=== PATIENT | male | born 1980 | race Caucasian/White ===

== ENCOUNTER 2019-01-03 15:46 | Emergency (ER) | payer OTHER ==
[2019-01-03 16:05] VITALS: BP 132/80; PULSE 83; RESP 16; TEMP 99
[2019-01-03] MEDS ORDERED: DEXAMETHASONE SOD PHOSPHATE 10 MG/ML 1 ML VIAL IM STA (16:46)
[2019-01-03] MEDS ORDERED: AMOXIC-POT CLAV 875MG STARTER 2 EACH TABLET PO STA (16:46)
--- NOTE | 2019-01-03 16:48 | ED ---
ENT HPI - General Chief complaint: ENT Stated complaint: [facility]cess ent by [facility] Time Seen by Provider: 01/03/19 16:20 Source: patient Mode of arrival: ambulatory Limitations: no limitations - History of Present Illness Initial comments: 38-year-old male patient presents to the emergency department today for evaluation of sore throat. Patient was seen and evaluated at urgent care and sent in for possible peritonsillar abscess. Patient states he has had a sore throat for the last week. States that he did complete a prescription for a azithromycin and symptoms have persisted. States it hurts more on the right side. He does report increased pain with swallowing. Denies any difficulty swallowing or breathing. Denies fever or chills. Patient states Tylenol Motrin does improve his symptoms. Denies any ear pain. Patient denies any recent rash, chest pain, abdominal pain, nausea, vomiting, diarrhea, constipation, back pain, numbness, tingling, dizziness, weakness, hematuria, dysuria, urinary urgency, urinary frequency, headache, visual changes, or any other complaints. - Related Data Previous Rx's Medication Instructions Recorded Amoxic-Pot Clav 875-125Mg 1 tab PO Q12HR #20 tablet 01/03/19 [Augmentin 875-125] Allergies Allergy/AdvReac Type Severity Reaction Status Date / Time No Known Allergies Allergy Verified 01/03/19 16:06 Review of Systems ROS Statement: Those systems with pertinent positive or pertinent negative responses have been documented in the HPI. ROS Other: All systems not noted in ROS Statement are negative. Past Medical History Past Medical History: No Reported History History of Any Multi-Drug Resistant Organisms: None Reported Past Surgical History: No Surgical Hx Reported Past Psychological History: No Psychological Hx Reported Smoking Status: Never smoker Past Alcohol Use History: None Reported, Occasional Past Drug Use History: Marijuana General Exam Limitations: no limitations General appearance: alert, in no apparent distress, other (Physical well- developed, well-nourished adult male patient in no acute distress. Vital signs upon presentation are temperature 99.0F, pulse 83, respirations 16, blood pressure 132/80, pulse ox 97% on room air.) ENT exam: Present: mucous membranes moist, TM's normal bilaterally. Absent: normal oropharynx (Pharyngeal erythema. No tonsillar hypertrophy. No evidence for peritonsillar abscess. There does appear to be a right tonsillar stone.) Neck exam: Present: normal inspection. Absent: tenderness, meningismus, lymphadenopathy Respiratory exam: Present: normal lung sounds bilaterally. Absent: respiratory distress, wheezes, rales, rhonchi, stridor Cardiovascular Exam: Present: regular rate, normal rhythm, normal heart sounds. Absent: systolic murmur, diastolic murmur, rubs, gallop, clicks Neurological exam: Present: alert, oriented X3, CN II-XII intact Psychiatric exam: Present: normal affect, normal mood Skin exam: Present: warm, dry, intact, normal color. Absent: rash Course Vital Signs 01/03/19 16:03 Temperature 99.0 F Pulse Rate 83 Respiratory 16 Rate Blood Pressure 132/80 O2 Sat by Pulse 97 Oximetry Medical Decision Making - Medical Decision Making 38-year-old male patient presents to the emergency department today for evaluation of sore throat worse on the right side. Physical examination did reveal pharyngeal erythema and a right tonsillar stone. No evidence for peritonsillar abscess. Patient did complete perception for azithromycin. We'll give prescription for Augmentin. He'll given IM dose of Decadron here in the department. He'll be discharged with instructions to continue Tylenol and Motrin as well as increase fluids. Return parameters discussed in detail. He verbalizes understanding and agrees with this plan. Disposition Clinical Impression: Tonsillitis Disposition: HOME SELF-CARE Condition: Good Instructions (If sedation given, give patient instructions): Tonsillitis (ED) Additional Instructions: Complete antibiotic prescription in full. Consider taking an [id number] probiotic to help prevent intestinal infections from antibiotic use. Take Tylenol Motrin for pain control. Follow-up through primary care physician for recheck in 1-2 days. Return to the emergency department immediately for any new, worsening, or concerning symptoms. Prescriptions: Amoxic-Pot Clav 875-125Mg [Augmentin 875-125] 1 tab PO Q12HR #20 tablet Is patient prescribed a controlled substance at d/c from ED?: No Referrals: Chau Hauser MD [Primary Care Provider] - 1-2 days Time of Disposition: 16:47
== END 2019-01-03 17:02 | disposition home or self-care (01) ==
LOC: EC 15:46
DX: J03.90 Acute tonsillitis, unspecified (principal)
CPT/HCPCS: 99282; 96372; J1100

== ENCOUNTER → 2023-04-02 | Outpatient (CLI) | payer SELFPAY ==
[2023-04-02 18:22] LABS: Basophils # (A) 0.03 X 10*3/uL (0.00-0.10); Basophils % (A) 0.5 %; Eosinophils # (A) 0.14 X 10*3/uL (0.04-0.35); Eosinophils % (A) 2.2 %; HCT 51.9 % (39.6-50.0); HGB 17.7 g/dL (13.0-17.0); Lymphocytes # (A) 2.46 X 10*3/uL (0.90-5.00); MCH 31.7 pg (27.0-32.0); MCHC 34.1 g/dL (32.0-37.0); MCV 92.8 FL (80.0-97.0); Mean Platelet Volume 9.9 FL (9.5-12.2); Monocytes # (A) 0.64 X 10*3/uL (0.20-1.00); Monocytes % (A) 9.9 %; NRBC Per 100 WBC 0 X 10*3/uL (0.00-0.01); Neutrophils # (A) 3.17 X 10*3/uL (1.80-7.70); Neutrophils % (A) 48.9 %; Platelet Count 178 X 10*3/uL (140-440); RBC 5.59 X 10*6/uL (4.40-5.60); WBC 6.47 X 10*3/uL (4.50-10.00)
[2023-04-02 18:43] LABS: Hepatitis B Surface AB- Quant 3.5 mIU/mL
[2023-04-02 21:33] LABS: Chol/HDL Ratio 4.24 Ratio
[2023-04-02 21:34] LABS: LDL Cholesterol,Calculated 136.4 mg/dL (0.0-131.0)
[2023-04-02 23:28] LABS: Hepatitis B Surface Antigen Nonreactive; Hepatitis C IgG Antibody Nonreactive
[2023-04-03 00:04] LABS: ALT 34 U/L (10-49); AST 29 U/L (14-35); Albumin 4.8 g/dL (3.8-4.9); Albumin/Globulin Ratio 2.18 Ratio (1.60-3.17); Alkaline Phosphatase 54 U/L (41-126); BUN/Creat Ratio 12.36 Ratio (12.00-20.00); Bilirubin, Conjugated <0.20 mg/dL (0.20-0.40); Bilirubin,Unconjugated >0.50 mg/dL (0.20-1.00); Blood Urea Nitrogen 13.6 mg/dL (9.0-27.0); Calcium 10.1 mg/dL (8.7-10.3); Chloride 102 mmol/L (96-109); Globulin 2.2 g/dL (1.6-3.3); Glucose 40 mg/dL (70-110); Potassium 4.8 mmol/L (3.5-5.5); Sodium 142 mmol/L (135-145); Total Bilirubin 0.7 mg/dL (0.3-1.2)
== END | disposition home or self-care (01) ==
LOC: LABWHC1 15:34
PROVIDERS: ATTEND Nurse Practitioner Family
DX: L40.0 Psoriasis vulgaris (principal)
CPT/HCPCS: 36415; 80048; 80061; 80076; 85025; 86480; 86704; 86706; 86803; 87340